=== PATIENT | female | born 1990 | race African-American/Black ===

== ENCOUNTER 2021-10-09 10:46 | Emergency (ER) | payer MEDICAID ==
[~2021-10-09] VITALS: Ht 170.2 cm; Wt 63.0 kg
[2021-10-09 10:50] VITALS: BP 150/90
[2021-10-09] MEDS ORDERED: CEFTRIAXONE SODIUM 500 MG/VIAL IM ONE (13:00)
[2021-10-09] MEDS ORDERED: LIDOCAINE HCL 1% 20ML VIAL (Pyxis) INJ INFIL ONE (13:00)
[2021-10-09] MEDS ORDERED: DOXY100T2 MT (14:06)
== END 2021-10-09 15:14 | disposition left against medical advice (07) ==
LOC: ER 10:46
DX: A54.9 Gonococcal infection, unspecified (principal); Z88.2 Allergy status to sulfonamides
CPT/HCPCS: 81025; 86592; 86695; 86696; 87210; 96372; 99283; J0696; J3490